=== PATIENT | male | born 1965 | race Caucasian/White ===

== ENCOUNTER 2023-07-26 23:23 | Inpatient (IN) | payer BC ==
[~2023-07-26] VITALS: Ht 188 cm; Wt 130.2 kg
[2023-07-27 00:35] LABS: CREATININE 1.4 mg/dL (0.5-1.3)
[2023-07-27 00:37] LABS: BASOPHILS # (AUTO) 0.02 K/uL (0.00-0.20); BASOPHILS % (AUTO) 0.2 % (0.0-5.0); EOSINOPHILS # (AUTO) 0.05 K/uL (0.00-0.70); EOSINOPHILS % (AUTO) 0.4 % (0.0-8.0); HEMATOCRIT 29.1 % (42-54); IMMATURE GRANULOCYTE ABSOLUTE 0.16 K/uL (0-1); LYMPHOCYTES # (AUTO) 0.7 K/uL (1.0-4.8); MEAN CORPUSCULAR HEMOGLOBIN 29.2 pg (27.0-33.0); MEAN CORPUSCULAR VOLUME 88.4 fL (79-99); MONOCYTES # (AUTO) 0.6 K/uL (0.1-1.0); MONOCYTES % (AUTO) 5.3 % (3.0-13.0); NEUTROPHILS # (AUTO) 9.9 K/uL (1.8-7.7); NEUTROPHILS % (AUTO) 86.7 % (40.0-77.0); PLATELET COUNT (AUTO) 38 K/uL (130-400); RED BLOOD CELL COUNT(AUTO) 3.29 MIL/uL (4.50-6.20); RED CELL DISTRIBUTION WIDTH 15.7 % (11.0-15.5); WHITE BLOOD COUNT (AUTO) 11.4 K/uL (4.8-10.8)
[2023-07-27 00:52] LABS: INR 1.11 (0.85-1.15)
[2023-07-27 00:54] LABS: PARTIAL THROMBOPLASTIN TIME 40.7 SEC (26.3-35.5)
[2023-07-27 00:57] LABS: WBC MORPHOLOGY CONSISTENT W/DIFF
[2023-07-27 00:58] LABS: PLATELET MORPHOLOGY COMMENT LARGE PLTS PRESENT
[2023-07-27] MEDS: ZOSYN 3.375GM +NS 50ML IV SCH ×2 (07:50→09:00)
[2023-07-27 08:46] LABS: BASOPHILS # (AUTO) 0.01 K/uL (0.00-0.20); BASOPHILS % (AUTO) 0.1 % (0.0-5.0); EOSINOPHILS # (AUTO) 0.05 K/uL (0.00-0.70); EOSINOPHILS % (AUTO) 0.7 % (0.0-8.0); HEMATOCRIT 26.7 % (42-54); IMMATURE GRANULOCYTE ABSOLUTE 0.11 K/uL (0-1); LYMPHOCYTES # (AUTO) 0.5 K/uL (1.0-4.8); LYMPHOCYTES % (AUTO) 7.1 % (21.0-51.0); MEAN CORPUSCULAR HEMOGLOBIN 29.8 pg (27.0-33.0); MEAN CORPUSCULAR VOLUME 90.5 fL (79-99); MONOCYTES # (AUTO) 0.5 K/uL (0.1-1.0); MONOCYTES % (AUTO) 6.4 % (3.0-13.0); NEUTROPHILS # (AUTO) 6.1 K/uL (1.8-7.7); NEUTROPHILS % (AUTO) 84.2 % (40.0-77.0); PLATELET COUNT (AUTO) 29 K/uL (130-400); RED BLOOD CELL COUNT(AUTO) 2.95 MIL/uL (4.50-6.20); RED CELL DISTRIBUTION WIDTH 15.6 % (11.0-15.5); WHITE BLOOD COUNT (AUTO) 7.2 K/uL (4.8-10.8)
[2023-07-27 08:56] LABS: ALBUMIN 1.9 g/dL (3.5-5.0); BILIRUBIN,TOTAL 1.2 mg/dL (0.2-1.0); CREATININE 1.3 mg/dL (0.5-1.3); TOTAL PROTEIN, SERUM 6.1 g/dL (6.0-8.3)
[2023-07-27] MEDS ORDERED: ACETAMINOPHEN 325 MG TAB PO PRN (09:00)
[2023-07-27 09:10] LABS: BASOPHILS # (AUTO) 0.01 K/uL (0.00-0.20); BASOPHILS % (AUTO) 0.1 % (0.0-5.0); EOSINOPHILS # (AUTO) 0.06 K/uL (0.00-0.70); EOSINOPHILS % (AUTO) 0.8 % (0.0-8.0); HEMATOCRIT 25.3 % (42-54); LYMPHOCYTES # (AUTO) 0.4 K/uL (1.0-4.8); LYMPHOCYTES % (AUTO) 4.9 % (21.0-51.0); MEAN CORPUSCULAR HGB CONC 33.2 g/dL (32.0-36.0); MEAN CORPUSCULAR VOLUME 90.4 fL (79-99); MONOCYTES # (AUTO) 0.5 K/uL (0.1-1.0); MONOCYTES % (AUTO) 6.1 % (3.0-13.0); NEUTROPHILS # (AUTO) 6.6 K/uL (1.8-7.7); NEUTROPHILS % (AUTO) 86.8 % (40.0-77.0); PLATELET COUNT (AUTO) 27 K/uL (130-400); RED CELL DISTRIBUTION WIDTH 15.6 % (11.0-15.5); WHITE BLOOD COUNT (AUTO) 7.6 K/uL (4.8-10.8)
[2023-07-27 09:20] LABS: POTASSIUM 4.1 mmol/L (3.5-5.1)
[2023-07-27] MEDS: IBUPROFEN 200 MG TAB PO SCH (09:30)
[2023-07-27 09:57] LABS: RETICULOCYTE % (AUTO) 1.2 % (0.42-2.23)
[2023-07-27] MEDS: 0.9%NACL 1000ML 1,000 ML IV SCH (09:57)
[2023-07-27] MEDS: FAMOTIDINE 20MG TAB PO SCH (09:57)
[2023-07-27] MEDS: CEFTRIAXONE 1G VIAL IVPB SCH (09:57)
[2023-07-27 10:23] LABS: HIV 1&2 ANTIBODY Non-Reactive (Negative); HIV-1 p24 Antigen Non-Reactive (Negative)
[2023-07-27 10:57] LABS: % IRON SATURATION 11.1 % (30-44)
[2023-07-27 12:00] VITALS: BP 110/75; PULSE 105; RESP 19
[2023-07-27] MEDS ORDERED: IOHEXOL-350 75 ML VIAL IV ONE (12:37)
[2023-07-27] MEDS ORDERED: SOLU-MEDROL 125MG VIAL IVP ONE (13:30)
[2023-07-27] MEDS ORDERED: COMPOUND IV MISC 1 EACH IVSOLN MISC PRN (14:30)
[2023-07-27] MEDS: AZITHROMYCIN 500MG+NS 250ML 250 ML IVPB SCH (14:33)
[2023-07-27 16:00] VITALS: BP 99/67; PULSE 119; RESP 19
[2023-07-27] MEDS: PHARMACY COMMUNICATION MISC SCH (16:00)
[2023-07-27] MEDS: [UNRECOGNIZED DRUG - OTHER] IVP ONE (18:11)
[2023-07-27] MEDS: METHYLPREDNISOLONE SUCC IVP ONE (18:11)
[2023-07-27] MEDS: IRON SUCROSE COMPLEX 300 MG+/NS 250ML IV SCH (18:13)
[2023-07-27 20:00] VITALS: BP 108/62; PULSE 76; RESP 18; O2SAT 96
[2023-07-27] MEDS: ACETAMINOPHEN 325 MG TAB PO PRN (20:09)
[2023-07-27 20:41] LABS: APPEARANCE,URINE CLOUDY (CLEAR); BILIRUBIN,URINE NEGATIVE (NEGATIVE); COLOR,URINE YELLOW (YELLOW); GLUCOSE, URINE (UA) NEGATIVE (NEGATIVE); KETONES,URINE 10 mg/dL (NEGATIVE); LEUKOCYTE ESTERASE ,URINE NEGATIVE Leu/uL (NEGATIVE); NITRATE,URINE NEGATIVE (NEGATIVE); OCCULT BLOOD,URINE SMALL (NEGATIVE); PROTEIN,URINE 70 mg/dL (NEGATIVE); UROBILINOGEN,URINE 0.2 mg/dL (0.2-1.0)
[2023-07-27 20:43] LABS: ADD UA MICROSCOPIC YES
[2023-07-27 20:46] LABS: BACTERIA,URINE RARE /HPF (None Seen); MUCUS,URINE RARE LPF (None Seen)
[2023-07-27 21:06] LABS: AMPHET/METH SCREEN,URINE NEGATIVE (NEGATIVE); BARBITURATE SCREEN, URINE NEGATIVE (NEGATIVE); BENZODIAZEPINES SCREEN,URINE NEGATIVE (NEGATIVE); CANNABINOID SCREEN,URINE POSITIVE (NEGATIVE); COCAINE SCREEN,URINE NEGATIVE (NEGATIVE); OPIATE SCREEN,URINE NEGATIVE (NEGATIVE); PHENCYCLIDINE SCREEN,URINE NEGATIVE (NEGATIVE)
[2023-07-28] VITALS (9 sets, daily range): BP systolic 113–126; BP diastolic 65–81; PULSE 76–99; RESP 18–22; O2SAT 96–98
[2023-07-28 04:36] LABS: BASOPHILS # (AUTO) 0.01 K/uL (0.00-0.20); BASOPHILS % (AUTO) 0.2 % (0.0-5.0); HEMATOCRIT 26.2 % (42-54); IMMATURE GRANULOCYTE ABSOLUTE 0.09 K/uL (0-1); LYMPHOCYTES # (AUTO) 0.2 K/uL (1.0-4.8); LYMPHOCYTES % (AUTO) 2.6 % (21.0-51.0); MEAN CORPUSCULAR HGB CONC 33.2 g/dL (32.0-36.0); MEAN CORPUSCULAR VOLUME 90.3 fL (79-99); MONOCYTES # (AUTO) 0.2 K/uL (0.1-1.0); MONOCYTES % (AUTO) 2.5 % (3.0-13.0); NEUTROPHILS # (AUTO) 5.7 K/uL (1.8-7.7); NEUTROPHILS % (AUTO) 93.2 % (40.0-77.0); PLATELET COUNT (AUTO) 28 K/uL (130-400); RED CELL DISTRIBUTION WIDTH 15.8 % (11.0-15.5); WHITE BLOOD COUNT (AUTO) 6.1 K/uL (4.8-10.8)
[2023-07-28 04:55] LABS: CREATININE 1.6 mg/dL (0.5-1.3); MAGNESIUM 2.2 mg/dL (1.80-2.40); POTASSIUM 4.5 mmol/L (3.5-5.1)
[2023-07-28] MEDS: 0.9% NACL 500ML IV.SOLN 500 ML IV STA (05:28)
[2023-07-28 07:01] LABS: ERYTHROCYTE SEDIMENTATION RATE 110 MM/HR (0-20)
[2023-07-28 10:28] LABS: ABG BASE EXCESS -2.3 mmol/L (-2.0-3.0); ABG HCO3 19.9 mmol/L (21.0-28.0); ABG OXYGEN SATURATION 97.8 % (95.0-99.0); ABG PCO2 28 mmHg (35-48); ABG PH 7.468 (7.35-7.450); PO2, ARTERIAL BG 96.7 mmHg (83.0-108.0); VENT MODE, BG RA (ROOM AIR)
[2023-07-28] MEDS ORDERED: DIATR MEGLU/DIATRIZOATE SODIUM 30 ML BOTTLE ONE (12:55)
[2023-07-28] MEDS ORDERED: COMPOUND IV MISC 1 EACH IVSOLN MISC PRN (13:00)
[2023-07-28] MEDS: FLUCONAZOLE 200 MG/NS 100 ML 100 ML IV SCH (13:39)
[2023-07-28] MEDS: DOXYCYCLINE HYCLATE 100 MG TABLET PO SCH (13:40)
[2023-07-28] MEDS: MEROPENEM 1 GM in 0.9%NACL 100ML 100 ML IVPB SCH (14:59)
[2023-07-29] VITALS (7 sets, daily range): BP systolic 119–132; BP diastolic 62–81; PULSE 73–81; RESP 17–20; O2SAT 96–97
[2023-07-29 04:42] LABS: ALBUMIN 1.8 g/dL (3.5-5.0); BILIRUBIN,TOTAL 0.8 mg/dL (0.2-1.0); CREATININE 2.4 mg/dL (0.5-1.3); TOTAL PROTEIN, SERUM 5.9 g/dL (6.0-8.3)
[2023-07-29 08:23] LABS: BASOPHILS # (AUTO) 0.01 K/uL (0.00-0.20); BASOPHILS % (AUTO) 0.1 % (0.0-5.0); EOSINOPHILS # (AUTO) 0.01 K/uL (0.00-0.70); EOSINOPHILS % (AUTO) 0.1 % (0.0-8.0); HEMATOCRIT 23.9 % (42-54); IMMATURE GRANULOCYTE ABSOLUTE 0.16 K/uL (0-1); LYMPHOCYTES # (AUTO) 0.4 K/uL (1.0-4.8); LYMPHOCYTES % (AUTO) 2.8 % (21.0-51.0); MEAN CORPUSCULAR HEMOGLOBIN 29.8 pg (27.0-33.0); MEAN CORPUSCULAR HGB CONC 32.6 g/dL (32.0-36.0); MEAN CORPUSCULAR VOLUME 91.2 fL (79-99); MONOCYTES # (AUTO) 0.6 K/uL (0.1-1.0); MONOCYTES % (AUTO) 4.7 % (3.0-13.0); NEUTROPHILS # (AUTO) 11.3 K/uL (1.8-7.7); PLATELET COUNT (AUTO) 38 K/uL (130-400); RED BLOOD CELL COUNT(AUTO) 2.62 MIL/uL (4.50-6.20); RED CELL DISTRIBUTION WIDTH 16.1 % (11.0-15.5); WHITE BLOOD COUNT (AUTO) 12.4 K/uL (4.8-10.8)
[2023-07-29 11:48] LABS: HEMOGLOBIN A1C 5.6 % (4.0-6.0)
[2023-07-29] MEDS: IBUPROFEN 400 MG TABLET PO SCH (20:47)
[2023-07-30] VITALS (22 sets, daily range): BP systolic 108–157; BP diastolic 50–88; PULSE 75–94; RESP 11–23; O2SAT 98
[2023-07-30 05:31] LABS: BASOPHILS # (AUTO) 0.01 K/uL (0.00-0.20); BASOPHILS % (AUTO) 0.1 % (0.0-5.0); HEMATOCRIT 23.2 % (42-54); IMMATURE GRANULOCYTE ABSOLUTE 0.24 K/uL (0-1); LYMPHOCYTES # (AUTO) 0.5 K/uL (1.0-4.8); LYMPHOCYTES % (AUTO) 5.3 % (21.0-51.0); MEAN CORPUSCULAR HEMOGLOBIN 29.9 pg (27.0-33.0); MEAN CORPUSCULAR HGB CONC 32.8 g/dL (32.0-36.0); MEAN CORPUSCULAR VOLUME 91.3 fL (79-99); MONOCYTES # (AUTO) 0.6 K/uL (0.1-1.0); MONOCYTES % (AUTO) 5.9 % (3.0-13.0); NEUTROPHILS # (AUTO) 8.3 K/uL (1.8-7.7); NEUTROPHILS % (AUTO) 86.2 % (40.0-77.0); PLATELET COUNT (AUTO) 38 K/uL (130-400); RED BLOOD CELL COUNT(AUTO) 2.54 MIL/uL (4.50-6.20); RED CELL DISTRIBUTION WIDTH 16.2 % (11.0-15.5); WHITE BLOOD COUNT (AUTO) 9.7 K/uL (4.8-10.8)
[2023-07-30 05:56] LABS: ALBUMIN 1.8 g/dL (3.5-5.0); BILIRUBIN,TOTAL 0.9 mg/dL (0.2-1.0); CREATININE 2.4 mg/dL (0.5-1.3); MAGNESIUM 2.3 mg/dL (1.80-2.40); POTASSIUM 3.6 mmol/L (3.5-5.1); TOTAL PROTEIN, SERUM 5.5 g/dL (6.0-8.3); URIC ACID 8.4 mg/dL (2.6-7.2)
[2023-07-30 14:13] LABS: ANTI-SCLERODERMA 70 <0.2 AI (0.0-0.9)
[2023-07-30] MEDS: SIMETHICONE 80 MG TAB.CHEW PO PRN (17:44)
[2023-07-30] MEDS: ONDANSETRON 4MG INJ IVP PRN (18:12)
[2023-07-30 19:10] LABS: HEMATOCRIT 24.6 % (42-54); MEAN CORPUSCULAR HEMOGLOBIN 29.5 pg (27.0-33.0); MEAN CORPUSCULAR HGB CONC 33.7 g/dL (32.0-36.0); MEAN CORPUSCULAR VOLUME 87.5 fL (79-99); RED BLOOD CELL COUNT(AUTO) 2.81 MIL/uL (4.50-6.20); RED CELL DISTRIBUTION WIDTH 15.9 % (11.0-15.5); WHITE BLOOD COUNT (AUTO) 7.8 K/uL (4.8-10.8)
[2023-07-30 19:22] LABS: CREATININE 2.1 mg/dL (0.5-1.3); POTASSIUM 3.4 mmol/L (3.5-5.1)
[2023-07-30 19:27] LABS: ALBUMIN 1.9 g/dL (3.5-5.0); BILIRUBIN,TOTAL 1.3 mg/dL (0.2-1.0); TOTAL PROTEIN, SERUM 5.4 g/dL (6.0-8.3)
[2023-07-30] MEDS: POTASSIUM CHLORIDE 20MEQ/100ML 100 ML IV ONE ×2 (19:39→20:00)
[2023-07-30 20:50] LABS: INR 1.13 (0.85-1.15); PROTHROMBIN TIME 13.2 SEC (9.6-11.6)
[2023-07-30] MEDS: PANTOPRAZOLE 40 MG/VIAL IVP SCH (22:00)
[2023-07-30] MEDS: LORAZEPAM 2 MG/ML 1 ML VIAL ONE (22:31)
[2023-07-30] MEDS: LORAZEPAM 2 MG/ML 1 ML VIAL IVP PRN (23:50)
[2023-07-31] VITALS (41 sets, daily range): BP systolic 116–150; BP diastolic 67–102; PULSE 83–93; RESP 16–23; O2SAT 97–99
[2023-07-31] MEDS ORDERED: DEXTROSE 50%-WATER 50 ML DISP.SYRIN IV PRN
[2023-07-31] MEDS ORDERED: GLUCAGON 1MG KIT 1 MG ML IM PRN
[2023-07-31] MEDS: LEVETIRACETAM 1,000 MG in 0.9%NACL 100ML IV ONE (00:08)
[2023-07-31 04:05] LABS: BASOPHILS # (AUTO) 0.01 K/uL (0.00-0.20); BASOPHILS % (AUTO) 0.1 % (0.0-5.0); HEMATOCRIT 23.4 % (42-54); IMMATURE GRANULOCYTE ABSOLUTE 0.18 K/uL (0-1); LYMPHOCYTES # (AUTO) 0.4 K/uL (1.0-4.8); LYMPHOCYTES % (AUTO) 4.1 % (21.0-51.0); MEAN CORPUSCULAR HEMOGLOBIN 29.6 pg (27.0-33.0); MEAN CORPUSCULAR HGB CONC 32.9 g/dL (32.0-36.0); MONOCYTES # (AUTO) 0.3 K/uL (0.1-1.0); MONOCYTES % (AUTO) 3.4 % (3.0-13.0); NEUTROPHILS # (AUTO) 7.7 K/uL (1.8-7.7); NEUTROPHILS % (AUTO) 90.3 % (40.0-77.0); PLATELET COUNT (AUTO) 31 K/uL (130-400); RED CELL DISTRIBUTION WIDTH 16.1 % (11.0-15.5); WHITE BLOOD COUNT (AUTO) 8.6 K/uL (4.8-10.8)
[2023-07-31 04:19] LABS: ALBUMIN 1.7 g/dL (3.5-5.0); BILIRUBIN,TOTAL 1.3 mg/dL (0.2-1.0); CREATININE 2.1 mg/dL (0.5-1.3); PHOSPHORUS 4.4 mg/dL (2.5-4.9); POTASSIUM 3.9 mmol/L (3.5-5.1); TOTAL PROTEIN, SERUM 5.3 g/dL (6.0-8.3)
[2023-07-31] MEDS: IRON SUCROSE COMPLEX 100 MG/5 ML VIAL IV ONE (08:20)
[2023-07-31] MEDS: FOLIC ACID 1 MG TABLET PO ONE (08:20)
[2023-07-31] MEDS: Vitamin B Complex/Vit C/Folic Acid PO ONE (08:24)
[2023-07-31] MEDS: LEVETIRACETAM 500 MG in 0.9%NACL 100ML 100 ML IV SCH (11:50)
[2023-07-31] MEDS ORDERED: DULO60CA64 PO (12:27)
[2023-07-31] MEDS ORDERED: METH-812 PO (12:27)
[2023-07-31] MEDS ORDERED: FLUT15.845 NS (12:27)
[2023-07-31 16:24] LABS: BILIRUBIN,URINE NEGATIVE (NEGATIVE); COLOR,URINE YELLOW (YELLOW); GLUCOSE, URINE (UA) NEGATIVE (NEGATIVE); KETONES,URINE NEGATIVE (NEGATIVE); LEUKOCYTE ESTERASE ,URINE NEGATIVE Leu/uL (NEGATIVE); NITRATE,URINE NEGATIVE (NEGATIVE); OCCULT BLOOD,URINE LARGE (NEGATIVE); PROTEIN,URINE 20 mg/dL (NEGATIVE)
[2023-07-31 16:28] LABS: APPEARANCE,URINE HAZY (CLEAR)
[2023-07-31 16:29] LABS: ADD UA MICROSCOPIC YES
[2023-07-31 16:33] LABS: BACTERIA,URINE RARE /HPF (None Seen); MUCUS,URINE RARE LPF (None Seen); RBC,URINE 51-100 /HPF (0-1); WBC,URINE 0-1 /HPF (0-1)
[2023-07-31 16:34] LABS: CREATININE,URINE RANDOM 60.55 mg/dL (30-135)
[2023-07-31] MEDS ORDERED: LEVETIRACETAM 500 MG/5 ML SD VIAL IV SCH (18:00)
[2023-07-31] MEDS: LEVETIRACETAM 1,000 MG in 0.9%NACL 100ML 100 ML IV ONE (18:46)
[2023-07-31] MEDS: LEVETIRACETAM 250 MG TABLET PO SCH (20:30)
[2023-07-31] MEDS ORDERED: LEVETIRACETAM 750 MG in 0.9%NACL 100ML 100 ML IV SCH (21:00)
[2023-08-01] VITALS (21 sets, daily range): BP systolic 117–145; BP diastolic 58–83; PULSE 84–99; RESP 15–24; O2SAT 95–98
[2023-08-01 03:43] LABS: BASOPHILS # (AUTO) 0.01 K/uL (0.00-0.20); BASOPHILS % (AUTO) 0.1 % (0.0-5.0); EOSINOPHILS # (AUTO) 0.08 K/uL (0.00-0.70); EOSINOPHILS % (AUTO) 0.8 % (0.0-8.0); HEMATOCRIT 23.6 % (42-54); LYMPHOCYTES # (AUTO) 0.3 K/uL (1.0-4.8); LYMPHOCYTES % (AUTO) 3.3 % (21.0-51.0); MEAN CORPUSCULAR HEMOGLOBIN 29.7 pg (27.0-33.0); MEAN CORPUSCULAR HGB CONC 32.2 g/dL (32.0-36.0); MEAN CORPUSCULAR VOLUME 92.2 fL (79-99); MONOCYTES # (AUTO) 0.3 K/uL (0.1-1.0); MONOCYTES % (AUTO) 3.1 % (3.0-13.0); NEUTROPHILS # (AUTO) 8.6 K/uL (1.8-7.7); NEUTROPHILS % (AUTO) 88.6 % (40.0-77.0); PLATELET COUNT (AUTO) 26 K/uL (130-400); RED BLOOD CELL COUNT(AUTO) 2.56 MIL/uL (4.50-6.20); RED CELL DISTRIBUTION WIDTH 15.9 % (11.0-15.5); WHITE BLOOD COUNT (AUTO) 9.7 K/uL (4.8-10.8)
[2023-08-01 03:53] LABS: INR 1.14 (0.85-1.15); PROTHROMBIN TIME 13.3 SEC (9.6-11.6)
[2023-08-01 03:54] LABS: PARTIAL THROMBOPLASTIN TIME 43.3 SEC (26.3-35.5)
[2023-08-01 03:58] LABS: ALBUMIN 1.6 g/dL (3.5-5.0); BILIRUBIN,TOTAL 1.6 mg/dL (0.2-1.0); CREATININE 1.8 mg/dL (0.5-1.3); MAGNESIUM 1.7 mg/dL (1.80-2.40); PHOSPHORUS 3.1 mg/dL (2.5-4.9); POTASSIUM 3.7 mmol/L (3.5-5.1); TOTAL PROTEIN, SERUM 5.1 g/dL (6.0-8.3)
[2023-08-01] MEDS: MAGNESIUM 2GM PREMIX 50ML 50 ML IV SCH (08:29)
[2023-08-01] MEDS: DEXAMETHASONE SOD PHOSPHATE 4 MG/ML 1ML VIAL IV SCH (13:46)
[2023-08-01] MEDS ORDERED: FENTANYL CITRATE PF 50 MCG/1 ML 2ML VIAL ONE (14:22)
[2023-08-01] MEDS ORDERED: MIDAZOLAM HCL 1 MG/ML 2ML VIAL ONE (14:22)
[2023-08-01] MEDS: INSULIN HUMULIN R 100 UNIT/ML 3ML SQ SCH (16:30)
[2023-08-01] MEDS: FAMOTIDINE 20MG TAB PO SCH (20:24)
[2023-08-02] VITALS (13 sets, daily range): BP systolic 101–151; BP diastolic 55–86; PULSE 78–105; RESP 15–21; O2SAT 96–97
[2023-08-02 05:38] LABS: MEAN CORPUSCULAR HEMOGLOBIN 29.3 pg (27.0-33.0); MEAN CORPUSCULAR HGB CONC 33.2 g/dL (32.0-36.0); MEAN CORPUSCULAR VOLUME 88.4 fL (79-99); PLATELET COUNT (AUTO) 55 K/uL (130-400); RED BLOOD CELL COUNT(AUTO) 2.49 MIL/uL (4.50-6.20); RED CELL DISTRIBUTION WIDTH 15.8 % (11.0-15.5); WHITE BLOOD COUNT (AUTO) 9.3 K/uL (4.8-10.8)
[2023-08-02 05:48] LABS: ALBUMIN 1.6 g/dL (3.5-5.0); BILIRUBIN,TOTAL 1.8 mg/dL (0.2-1.0); CREATININE 1.8 mg/dL (0.5-1.3); MAGNESIUM 2.3 mg/dL (1.80-2.40); PHOSPHORUS 4.3 mg/dL (2.5-4.9); TOTAL PROTEIN, SERUM 5.5 g/dL (6.0-8.3)
[2023-08-02 06:06] LABS: EOSINOPHILS % (MANUAL) 1 % (1-6); LYMPHOCYTES % (MANUAL) 2 % (22-44); MONOCYTES % (MANUAL) 3 % (2-9); SEGMENTED NEUTROPHILS % 94 % (40-70); TOTAL CELLS COUNTED 100
[2023-08-02 06:07] LABS: MAN.DIFF COMMENT-IMPRESSION MANUAL DIFFERENTIAL; PLATELET MORPHOLOGY COMMENT DECREASED
[2023-08-02 12:13] LABS: FREE KAPPA LIGHT CHAINS,S 48.5 mg/L (3.3-19.4)
[2023-08-02 13:15] LABS: CYTOPLASMIC (C-ANCA) AB, IGG <1:20 titer (Neg:<1:20)
[2023-08-02 15:15] LABS: ALBUMIN (IFE & ELECTROPHOR) 2.1 g/dL (2.9-4.4); ALBUMIN/GLOBULIN RATIO (IFE) 0.8 (0.7-1.7); ALPHA-1 (IFE & PEP) 0.4 g/dL (0.0-0.4); ALPHA-2 (IFE & PEP) 0.9 g/dL (0.4-1.0); BETA (IFE & ELP) 0.8 g/dL (0.7-1.3); GAMMA GLOBULINS (IFE & ELP) 0.9 g/dL (0.4-1.8); GLOBULIN TOTAL (IFE) 2.9 g/dL (2.2-3.9); IGA (IFE) 313 mg/dL (90-386); IGG (IMMUNOFIXATION) 934 mg/dL (603-1613); IGM (IMMUNOFIXATION) 26 mg/dL (20-172); M-SPIKE (IEP) Not Observed g/dL (Not Observed)
[2023-08-03] VITALS (7 sets, daily range): BP systolic 120–142; BP diastolic 71–86; PULSE 81–113; RESP 14–22; O2SAT 94–96
[2023-08-03 04:50] LABS: BASOPHILS # (AUTO) 0.01 K/uL (0.00-0.20); BASOPHILS % (AUTO) 0.1 % (0.0-5.0); HEMATOCRIT 22.4 % (42-54); IMMATURE GRANULOCYTE ABSOLUTE 0.65 K/uL (0-1); LYMPHOCYTES # (AUTO) 0.3 K/uL (1.0-4.8); LYMPHOCYTES % (AUTO) 2.5 % (21.0-51.0); MEAN CORPUSCULAR HEMOGLOBIN 29.2 pg (27.0-33.0); MEAN CORPUSCULAR VOLUME 88.5 fL (79-99); MONOCYTES # (AUTO) 0.5 K/uL (0.1-1.0); MONOCYTES % (AUTO) 4.1 % (3.0-13.0); NEUTROPHILS # (AUTO) 10.4 K/uL (1.8-7.7); NEUTROPHILS % (AUTO) 87.8 % (40.0-77.0); PLATELET COUNT (AUTO) 82 K/uL (130-400); RED BLOOD CELL COUNT(AUTO) 2.53 MIL/uL (4.50-6.20); RED CELL DISTRIBUTION WIDTH 15.9 % (11.0-15.5); WHITE BLOOD COUNT (AUTO) 11.8 K/uL (4.8-10.8)
[2023-08-03 05:07] LABS: ALBUMIN 1.6 g/dL (3.5-5.0); BILIRUBIN,TOTAL 1.1 mg/dL (0.2-1.0); CREATININE 1.8 mg/dL (0.5-1.3); MAGNESIUM 2.2 mg/dL (1.80-2.40); PHOSPHORUS 4.4 mg/dL (2.5-4.9); TOTAL PROTEIN, SERUM 5.5 g/dL (6.0-8.3)
[2023-08-03 09:38] LABS: CHOLESTEROL 137 mg/dL (<200); HDL CHOLESTEROL 24 mg/dL (29-71); LDL DIRECT 92 mg/dL (0-99); TRIGLYCERIDES 106 mg/dL (30-200)
[2023-08-03 14:29] LABS: APPEARANCE,URINE CLOUDY (CLEAR); BILIRUBIN,URINE NEGATIVE (NEGATIVE); COLOR,URINE YELLOW (YELLOW); GLUCOSE, URINE (UA) NEGATIVE (NEGATIVE); KETONES,URINE NEGATIVE (NEGATIVE); LEUKOCYTE ESTERASE ,URINE NEGATIVE Leu/uL (NEGATIVE); NITRATE,URINE NEGATIVE (NEGATIVE); OCCULT BLOOD,URINE MODERATE (NEGATIVE); PH,URINE 5.5 (5.0-8.0); PROTEIN,URINE 30 mg/dL (NEGATIVE)
[2023-08-03 14:35] LABS: ADD UA MICROSCOPIC YES
[2023-08-03 14:40] LABS: MUCUS,URINE RARE LPF (None Seen); OTHER CASTS, URINE 1 /LPF (None Seen); SQUAMOUS EPITHELIAL CELL,UR RARE /HPF (0-2); UNCLASSIFIED CRYSTAL 6 /HPF (None Seen)
[2023-08-03] MEDS: METOPROLOL TARTRATE 1 MG/ML 5ML VIAL IV PRN (15:31)
[2023-08-03] MEDS: METOPROLOL TARTRATE 25 MG TAB PO ONE (15:31)
[2023-08-03] MEDS: METOPROLOL TARTRATE 25 MG TAB ONE (15:33)
[2023-08-03] MEDS: METOPROLOL TARTRATE 1 MG/ML 5ML VIAL IV ONE ×3 (15:33→16:38)
[2023-08-03] MEDS: METOPROLOL TARTRATE 25 MG TAB PO SCH (20:26)
[2023-08-03] MEDS: LACTULOSE 20 GM/30 ML UDCUP PO ONE (20:27)
[2023-08-03] MEDS: ATORVASTATIN 40 MG TABLET PO SCH (20:27)
[2023-08-04] VITALS (32 sets, daily range): BP systolic 113–160; BP diastolic 67–95; PULSE 67–160; RESP 14–22; O2SAT 96
[2023-08-04 04:36] LABS: BASOPHILS # (AUTO) 0.02 K/uL (0.00-0.20); BASOPHILS % (AUTO) 0.2 % (0.0-5.0); HEMATOCRIT 23.8 % (42-54); IMMATURE GRANULOCYTE ABSOLUTE 0.64 K/uL (0-1); LYMPHOCYTES # (AUTO) 0.3 K/uL (1.0-4.8); LYMPHOCYTES % (AUTO) 2.8 % (21.0-51.0); MEAN CORPUSCULAR HEMOGLOBIN 29.1 pg (27.0-33.0); MEAN CORPUSCULAR HGB CONC 32.8 g/dL (32.0-36.0); MEAN CORPUSCULAR VOLUME 88.8 fL (79-99); MONOCYTES # (AUTO) 0.5 K/uL (0.1-1.0); MONOCYTES % (AUTO) 4.4 % (3.0-13.0); NEUTROPHILS # (AUTO) 9.8 K/uL (1.8-7.7); NEUTROPHILS % (AUTO) 86.9 % (40.0-77.0); PLATELET COUNT (AUTO) 71 K/uL (130-400); RED BLOOD CELL COUNT(AUTO) 2.68 MIL/uL (4.50-6.20); RED CELL DISTRIBUTION WIDTH 16.1 % (11.0-15.5); WHITE BLOOD COUNT (AUTO) 11.3 K/uL (4.8-10.8)
[2023-08-04 05:50] LABS: ALBUMIN 1.7 g/dL (3.5-5.0); BILIRUBIN,TOTAL 0.9 mg/dL (0.2-1.0); MAGNESIUM 2.1 mg/dL (1.80-2.40); POTASSIUM 4.4 mmol/L (3.5-5.1); TOTAL PROTEIN, SERUM 5.4 g/dL (6.0-8.3)
[2023-08-04] MEDS: 0.9% NACL 500ML IV.SOLN 500 ML IV ONE (10:41)
[2023-08-04] MEDS: DILTIAZEM 60MG TAB PO SCH (17:06)
[2023-08-04] MEDS: METOPROLOL TARTRATE 25 MG TAB PO SCH (20:38)
[2023-08-05] VITALS (11 sets, daily range): BP systolic 105–151; BP diastolic 55–85; PULSE 62–108; RESP 12–23; O2SAT 94–95
[2023-08-05 03:46] LABS: BASOPHILS # (AUTO) 0.03 K/uL (0.00-0.20); BASOPHILS % (AUTO) 0.2 % (0.0-5.0); HEMATOCRIT 22.2 % (42-54); IMMATURE GRANULOCYTE ABSOLUTE 0.79 K/uL (0-1); LYMPHOCYTES # (AUTO) 0.4 K/uL (1.0-4.8); LYMPHOCYTES % (AUTO) 2.8 % (21.0-51.0); MEAN CORPUSCULAR HEMOGLOBIN 29.3 pg (27.0-33.0); MEAN CORPUSCULAR HGB CONC 32.9 g/dL (32.0-36.0); MEAN CORPUSCULAR VOLUME 89.2 fL (79-99); MONOCYTES # (AUTO) 0.6 K/uL (0.1-1.0); MONOCYTES % (AUTO) 4.3 % (3.0-13.0); NEUTROPHILS # (AUTO) 11.4 K/uL (1.8-7.7); NEUTROPHILS % (AUTO) 86.7 % (40.0-77.0); PLATELET COUNT (AUTO) 65 K/uL (130-400); RED BLOOD CELL COUNT(AUTO) 2.49 MIL/uL (4.50-6.20); RED CELL DISTRIBUTION WIDTH 16.1 % (11.0-15.5); WHITE BLOOD COUNT (AUTO) 13.1 K/uL (4.8-10.8)
[2023-08-05 04:06] LABS: ALBUMIN 1.7 g/dL (3.5-5.0); BILIRUBIN,TOTAL 0.9 mg/dL (0.2-1.0); CREATININE 2.1 mg/dL (0.5-1.3); POTASSIUM 4.3 mmol/L (3.5-5.1)
[2023-08-05 11:09] LABS: INR 1.16 (0.85-1.15); PROTHROMBIN TIME 13.5 SEC (9.6-11.6)
[2023-08-05 11:11] LABS: PARTIAL THROMBOPLASTIN TIME 34.7 SEC (26.3-35.5)
[2023-08-05] MEDS: MORPHINE 4 MG SYG IVP ONE (13:12)
[2023-08-05] MEDS: MORPHINE 4 MG SYG ONE (13:28)
[2023-08-05] MEDS ORDERED: HYDROCODONE/ACETAMINOPHEN 5/325 MG TAB PO PRN (13:30)
[2023-08-05 17:14] LABS: ABG OXYGEN SATURATION 80.4 % (95.0-99.0); BASE EXCESS,VENOUS BLOOD GAS -4.1 (-2.0-3.0); DEVICE COMMENT VENOUS; HCO3,VENOUS BLOOD GAS 19.1 (21.0-28.0); PCO2,VENOUS BLOOD GAS 30 (32-45); PH,VENOUS BLOOD GAS 7.417 (7.350-7.450)
[2023-08-05 18:09] LABS: GAMMA URINE 25.1 % (.)
[2023-08-06] VITALS (9 sets, daily range): BP systolic 112–129; BP diastolic 68–84; PULSE 74–95; RESP 18–20; O2SAT 95
[2023-08-06 03:47] LABS: BASOPHILS # (AUTO) 0.03 K/uL (0.00-0.20); BASOPHILS % (AUTO) 0.2 % (0.0-5.0); EOSINOPHILS # (AUTO) 0.01 K/uL (0.00-0.70); EOSINOPHILS % (AUTO) 0.1 % (0.0-8.0); IMMATURE GRANULOCYTE ABSOLUTE 0.88 K/uL (0-1); LYMPHOCYTES # (AUTO) 0.4 K/uL (1.0-4.8); LYMPHOCYTES % (AUTO) 2.6 % (21.0-51.0); MEAN CORPUSCULAR HEMOGLOBIN 29.2 pg (27.0-33.0); MEAN CORPUSCULAR HGB CONC 30.8 g/dL (32.0-36.0); MEAN CORPUSCULAR VOLUME 94.7 fL (79-99); MONOCYTES # (AUTO) 0.5 K/uL (0.1-1.0); MONOCYTES % (AUTO) 3.1 % (3.0-13.0); NEUTROPHILS # (AUTO) 13.5 K/uL (1.8-7.7); NEUTROPHILS % (AUTO) 88.2 % (40.0-77.0); PLATELET COUNT (AUTO) 60 K/uL (130-400); RED BLOOD CELL COUNT(AUTO) 2.64 MIL/uL (4.50-6.20); RED CELL DISTRIBUTION WIDTH 16.4 % (11.0-15.5); WHITE BLOOD COUNT (AUTO) 15.3 K/uL (4.8-10.8)
[2023-08-06 04:05] LABS: ALBUMIN 1.7 g/dL (3.5-5.0); CREATININE 2.2 mg/dL (0.5-1.3); MAGNESIUM 2.1 mg/dL (1.80-2.40); PHOSPHORUS 5.3 mg/dL (2.5-4.9); POTASSIUM 4.9 mmol/L (3.5-5.1); TOTAL PROTEIN, SERUM 5.1 g/dL (6.0-8.3)
[2023-08-06] MEDS: LIDOCAINE 4% ADH..PATCH TP SCH (09:59)
[2023-08-06] MEDS: METOPROLOL SUCCINATE 50 MG TAB.SR.24H PO SCH (09:59)
[2023-08-06] MEDS: MORPHINE 2 MG SYG IV PRN (10:00)
[2023-08-06] MEDS: 0.9% NACL 500ML IV.SOLN 500 ML IV SCH (10:01)
[2023-08-06] MEDS ORDERED: HEPARIN 1,000 UNIT VIAL IVP SCH (17:30)
[2023-08-06] MEDS: M.V.I. IV [ADULT] 10 ML in CLINIMIX-E 5%AA /D15%W 2000ML 2,000 ML IV ONE (17:36)
[2023-08-06] MEDS: HEPARIN 25,000 UNITS/250ML D5W 250 ML IV SCH (17:38)
[2023-08-06] MEDS: HEPARIN 5,000 UNIT VIAL ONE (17:44)
[2023-08-06] MEDS: HEPARIN 5,000 UNIT VIAL IV ONE (17:44)
[2023-08-07] VITALS (7 sets, daily range): BP systolic 110–135; BP diastolic 59–79; PULSE 78–85; RESP 18–20; O2SAT 95
[2023-08-07 05:48] LABS: BASOPHILS # (AUTO) 0.03 K/uL (0.00-0.20); BASOPHILS % (AUTO) 0.2 % (0.0-5.0); HEMATOCRIT 22.3 % (42-54); IMMATURE GRANULOCYTE ABSOLUTE 0.78 K/uL (0-1); LYMPHOCYTES # (AUTO) 0.2 K/uL (1.0-4.8); LYMPHOCYTES % (AUTO) 1.3 % (21.0-51.0); MEAN CORPUSCULAR HEMOGLOBIN 29.9 pg (27.0-33.0); MEAN CORPUSCULAR HGB CONC 32.7 g/dL (32.0-36.0); MEAN CORPUSCULAR VOLUME 91.4 fL (79-99); MONOCYTES # (AUTO) 0.6 K/uL (0.1-1.0); MONOCYTES % (AUTO) 3.4 % (3.0-13.0); NEUTROPHILS # (AUTO) 16.5 K/uL (1.8-7.7); NEUTROPHILS % (AUTO) 90.8 % (40.0-77.0); PLATELET COUNT (AUTO) 52 K/uL (130-400); RED BLOOD CELL COUNT(AUTO) 2.44 MIL/uL (4.50-6.20); RED CELL DISTRIBUTION WIDTH 16.3 % (11.0-15.5); WHITE BLOOD COUNT (AUTO) 18.1 K/uL (4.8-10.8)
[2023-08-07 06:08] LABS: INR 1.18 (0.85-1.15); PROTHROMBIN TIME 13.8 SEC (9.6-11.6)
[2023-08-07 06:11] LABS: ALBUMIN 1.7 g/dL (3.5-5.0); BILIRUBIN,TOTAL 0.9 mg/dL (0.2-1.0); CREATININE 2.2 mg/dL (0.5-1.3); PHOSPHORUS 4.3 mg/dL (2.5-4.9); POTASSIUM 5.5 mmol/L (3.5-5.1); TOTAL PROTEIN, SERUM 4.9 g/dL (6.0-8.3)
[2023-08-07 06:25] LABS: PARTIAL THROMBOPLASTIN TIME > 139.0 SEC (26.3-35.5)
[2023-08-07] MEDS: FLUCONAZOLE 400 MG/NS 200 ML 200 ML IV SCH (08:54)
[2023-08-07] MEDS: 0.9% NACL 500ML IV.SOLN 500 ML IV SCH (10:04)
[2023-08-07] MEDS: FAT EMULSIONS 20% 250ML 250 ML IV SCH (11:30)
[2023-08-07] MEDS: MEROPENEM 1 GM in 0.9%NACL 100ML 100 ML IVPB SCH (16:24)
[2023-08-07] MEDS ORDERED: HEPARIN 5,000 UNIT VIAL IV PRN (19:00)
[2023-08-07] MEDS: DOXYCYCLINE 100MG+NS 250ML 250 ML IV SCH (21:41)
[2023-08-07 21:49] LABS: MAGNESIUM 2.3 mg/dL (1.80-2.40); POTASSIUM 5.3 mmol/L (3.5-5.1)
[2023-08-07] MEDS: LEVETIRACETAM 750 MG in 0.9%NACL 100ML 100 ML IV SCH (23:40)
[2023-08-08] VITALS (8 sets, daily range): BP systolic 120–149; BP diastolic 66–84; PULSE 67–94; RESP 18–20; O2SAT 95–96
[2023-08-08] MEDS: HEPARIN 25,000 UNITS/250ML D5W 250 ML IV SCH (01:00)
[2023-08-08] MEDS: M.V.I. IV [ADULT] 10 ML in CLINIMIX-E 5%AA /D15%W 2000ML 2,000 ML IV ONE (01:55)
[2023-08-08 07:15] LABS: BASOPHILS # (AUTO) 0.04 K/uL (0.00-0.20); BASOPHILS % (AUTO) 0.2 % (0.0-5.0); HEMATOCRIT 26.3 % (42-54); IMMATURE GRANULOCYTE ABSOLUTE 1.06 K/uL (0-1); LYMPHOCYTES # (AUTO) 0.3 K/uL (1.0-4.8); LYMPHOCYTES % (AUTO) 1.2 % (21.0-51.0); MEAN CORPUSCULAR HEMOGLOBIN 29.1 pg (27.0-33.0); MEAN CORPUSCULAR HGB CONC 31.6 g/dL (32.0-36.0); MEAN CORPUSCULAR VOLUME 92.3 fL (79-99); MONOCYTES # (AUTO) 0.6 K/uL (0.1-1.0); MONOCYTES % (AUTO) 2.8 % (3.0-13.0); NEUTROPHILS % (AUTO) 90.7 % (40.0-77.0); PLATELET COUNT (AUTO) 62 K/uL (130-400); RED BLOOD CELL COUNT(AUTO) 2.85 MIL/uL (4.50-6.20); WHITE BLOOD COUNT (AUTO) 20.9 K/uL (4.8-10.8)
[2023-08-08 07:38] LABS: ALBUMIN 1.9 g/dL (3.5-5.0); CREATININE 2.1 mg/dL (0.5-1.3); MAGNESIUM 2.2 mg/dL (1.80-2.40); PHOSPHORUS 4.1 mg/dL (2.5-4.9); POTASSIUM 4.9 mmol/L (3.5-5.1); TOTAL PROTEIN, SERUM 5.3 g/dL (6.0-8.3)
[2023-08-08] MEDS: FAMOTIDINE 20MG VIAL IV SCH (08:21)
[2023-08-08] MEDS: DILTIAZEM 60MG TAB PO SCH (08:22)
[2023-08-09] VITALS (33 sets, daily range): BP systolic 91–142; BP diastolic 48–80; PULSE 52–90; RESP 10–19; TEMP 96.5–98.3; O2SAT 96–98
[2023-08-09 04:24] LABS: BASOPHILS # (AUTO) 0.03 K/uL (0.00-0.20); BASOPHILS % (AUTO) 0.2 % (0.0-5.0); HEMATOCRIT 22.6 % (42-54); IMMATURE GRANULOCYTE ABSOLUTE 0.86 K/uL (0-1); LYMPHOCYTES # (AUTO) 0.2 K/uL (1.0-4.8); LYMPHOCYTES % (AUTO) 1.5 % (21.0-51.0); MEAN CORPUSCULAR HEMOGLOBIN 29.8 pg (27.0-33.0); MEAN CORPUSCULAR HGB CONC 31.9 g/dL (32.0-36.0); MEAN CORPUSCULAR VOLUME 93.4 fL (79-99); MONOCYTES # (AUTO) 0.5 K/uL (0.1-1.0); NEUTROPHILS # (AUTO) 14.1 K/uL (1.8-7.7); NEUTROPHILS % (AUTO) 89.8 % (40.0-77.0); PLATELET COUNT (AUTO) 48 K/uL (130-400); RED BLOOD CELL COUNT(AUTO) 2.42 MIL/uL (4.50-6.20); RED CELL DISTRIBUTION WIDTH 16.8 % (11.0-15.5); WHITE BLOOD COUNT (AUTO) 15.7 K/uL (4.8-10.8)
[2023-08-09 04:47] LABS: ALBUMIN 1.7 g/dL (3.5-5.0); BILIRUBIN,TOTAL 0.8 mg/dL (0.2-1.0); CREATININE 1.9 mg/dL (0.5-1.3); MAGNESIUM 2.1 mg/dL (1.80-2.40); POTASSIUM 5.3 mmol/L (3.5-5.1); TOTAL PROTEIN, SERUM 4.8 g/dL (6.0-8.3)
[2023-08-09] MEDS ORDERED: FENTANYL CITRATE PF 50 MCG/1 ML 2ML VIAL ONE ×5 (07:36→12:09)
[2023-08-09] MEDS ORDERED: ROCURONIUM BROMIDE 10MG/1ML 5ML VL ONE ×2 (07:36→09:37)
[2023-08-09] MEDS ORDERED: MIDAZOLAM HCL 1 MG/ML 2ML VIAL ONE ×2 (07:36→07:48)
[2023-08-09] MEDS ORDERED: PROPOFOL 10 MG/ML 20ML VIAL IV ONE ×2 (07:36→11:31)
[2023-08-09] MEDS ORDERED: PHENYLEPHRINE HCL 10 MG/ML 1ML VIAL IV ONE (07:47)
[2023-08-09] MEDS ORDERED: LIDOCAINE HCL 400MG/20ML VIAL ONE (07:47)
[2023-08-09] MEDS ORDERED: KETAMINE 50MG/ML SYRINGE 50 MG/ML DISP.SYRIN ONE (08:01)
[2023-08-09] MEDS ORDERED: VASOPRESSIN 20 UNITS/ML 1ML VIAL ONE (08:03)
[2023-08-09] MEDS ORDERED: ONDANSETRON 4MG INJ ONE (08:52)
[2023-08-09 09:40] LABS: ABG BASE EXCESS -6.1 mmol/L (-2.0-3.0); ABG HCO3 18.7 mmol/L (21.0-28.0); ABG OXYGEN SATURATION 98.9 % (95.0-99.0); ABG PCO2 34 mmHg (35-48); ABG PH 7.364 (7.35-7.450); CARBON MONOXIDE 0.3; HHb 1.1; PO2, ARTERIAL BG 244.7 mmHg (83.0-108.0); VENT MODE, BG OR VENT (ROOM AIR)
[2023-08-09] MEDS: DOXYCYCLINE 100MG+NS 250ML IV ONE (10:40)
[2023-08-09 11:16] LABS: ABG BASE EXCESS -6.7 mmol/L (-2.0-3.0); ABG HCO3 18.2 mmol/L (21.0-28.0); ABG OXYGEN SATURATION 98.3 % (95.0-99.0); ABG PCO2 34 mmHg (35-48); ABG PH 7.349 (7.35-7.450); CARBON MONOXIDE 0.3; HHb 1.7; PO2, ARTERIAL BG 159.8 mmHg (83.0-108.0); VENT MODE, BG OR VENT (ROOM AIR)
[2023-08-09] MEDS ORDERED: NEOSTIGMINE METHYLSULFATE 1MG/ML IV ONE (11:39)
[2023-08-09] MEDS ORDERED: GLYCOPYRROLATE 0.2 MG/ML 5 ML VIAL ONE (11:39)
[2023-08-09 13:46] LABS: MEAN CORPUSCULAR HGB CONC 33.2 g/dL (32.0-36.0); MEAN CORPUSCULAR VOLUME 90.5 fL (79-99); PLATELET COUNT (AUTO) 63 K/uL (130-400); RED BLOOD CELL COUNT(AUTO) 2.43 MIL/uL (4.50-6.20); RED CELL DISTRIBUTION WIDTH 15.8 % (11.0-15.5); WHITE BLOOD COUNT (AUTO) 27.6 K/uL (4.8-10.8)
[2023-08-09 13:52] LABS: CREATININE 1.5 mg/dL (0.5-1.3); POTASSIUM 4.2 mmol/L (3.5-5.1)
[2023-08-09] MEDS: EPOETIN ALFA-EPBX (NON-ESRD) 10,000 UNIT/ML VIAL SQ SCH (16:28)
[2023-08-09] MEDS: M.V.I. IV [ADULT] 10 ML in CLINIMIX-E 5%AA /D15%W 2000ML 2,000 ML IV ONE (16:28)
[2023-08-10] VITALS (49 sets, daily range): BP systolic 91–175; BP diastolic 51–96; PULSE 66–98; RESP 11–70; TEMP 98.3–98.8; O2SAT 95–98
[2023-08-10 03:56] LABS: HEMATOCRIT 22.6 % (42-54); MEAN CORPUSCULAR HEMOGLOBIN 30.4 pg (27.0-33.0); MEAN CORPUSCULAR HGB CONC 34.1 g/dL (32.0-36.0); MEAN CORPUSCULAR VOLUME 89.3 fL (79-99); RED BLOOD CELL COUNT(AUTO) 2.53 MIL/uL (4.50-6.20); RED CELL DISTRIBUTION WIDTH 16.6 % (11.0-15.5)
[2023-08-10 05:13] LABS: ALBUMIN 1.7 g/dL (3.5-5.0); BILIRUBIN,TOTAL 1.3 mg/dL (0.2-1.0); CREATININE 2.1 mg/dL (0.5-1.3); MAGNESIUM 2.3 mg/dL (1.80-2.40); PHOSPHORUS 4.4 mg/dL (2.5-4.9); POTASSIUM 5.4 mmol/L (3.5-5.1); TOTAL PROTEIN, SERUM 4.3 g/dL (6.0-8.3)
[2023-08-10] MEDS: CYANOCOBALAMIN (VITAMIN B-12) 1,000 MCG TABLET PO SCH (08:35)
[2023-08-10] MEDS: FOLIC ACID 5 MG/ML VIAL IV SCH (08:47)
[2023-08-10] MEDS ORDERED: FUROSEMIDE 20MG VIAL IV ONE (09:30)
[2023-08-10 12:18] LABS: POTASSIUM 4.8 mmol/L (3.5-5.1)
[2023-08-10] MEDS: IRON SUCROSE COMPLEX 100 MG/5 ML VIAL IV ONE (15:01)
[2023-08-10] MEDS: INSULIN HUMULIN R 100 UNIT/ML 3ML SQ SCH (15:21)
[2023-08-10] MEDS: FUROSEMIDE 40MG VIAL IV STA (17:08)
[2023-08-10] MEDS: M.V.I. IV [ADULT] 10 ML in CLINIMIX-E 5%AA /D15%W 2000ML 2,000 ML IV ONE (18:36)
[2023-08-10] MEDS: PROPOFOL 1000 MG/100 ML 100 ML IV ONE (19:00)
[2023-08-10] MEDS: HYDROMORPHONE 0.5 MG SYG (0.5MG/0.5ML) IVP PRN (19:06)
[2023-08-10 19:51] LABS: CREATININE 2.1 mg/dL (0.5-1.3); POTASSIUM 4.7 mmol/L (3.5-5.1)
[2023-08-10 23:24] LABS: CREATININE 2.1 mg/dL (0.5-1.3); POTASSIUM 4.9 mmol/L (3.5-5.1)
[2023-08-11] VITALS (48 sets, daily range): BP systolic 114–165; BP diastolic 53–92; PULSE 58–94; RESP 9–111; TEMP 97.5–98.6; O2SAT 92–96
[2023-08-11 07:01] LABS: CREATININE 1.9 mg/dL (0.5-1.3)
[2023-08-11 07:58] LABS: BASOPHILS # (AUTO) 0.03 K/uL (0.00-0.20); BASOPHILS % (AUTO) 0.2 % (0.0-5.0); HEMATOCRIT 22.8 % (42-54); IMMATURE GRANULOCYTE ABSOLUTE 0.62 K/uL (0-1); LYMPHOCYTES # (AUTO) 0.2 K/uL (1.0-4.8); LYMPHOCYTES % (AUTO) 1.1 % (21.0-51.0); MEAN CORPUSCULAR HEMOGLOBIN 30.6 pg (27.0-33.0); MEAN CORPUSCULAR HGB CONC 33.3 g/dL (32.0-36.0); MEAN CORPUSCULAR VOLUME 91.9 fL (79-99); MONOCYTES # (AUTO) 0.6 K/uL (0.1-1.0); MONOCYTES % (AUTO) 3.4 % (3.0-13.0); NEUTROPHILS # (AUTO) 17.1 K/uL (1.8-7.7); PLATELET COUNT (AUTO) 46 K/uL (130-400); RED BLOOD CELL COUNT(AUTO) 2.48 MIL/uL (4.50-6.20); RED CELL DISTRIBUTION WIDTH 16.4 % (11.0-15.5); WHITE BLOOD COUNT (AUTO) 18.6 K/uL (4.8-10.8)
[2023-08-11 08:12] LABS: CHOLESTEROL 99 mg/dL (<200); HDL CHOLESTEROL 27 mg/dL (29-71); LDL DIRECT 61 mg/dL (0-99); TRIGLYCERIDES 56 mg/dL (30-200)
[2023-08-11] MEDS: FUROSEMIDE 40MG VIAL IV ONE (09:01)
[2023-08-11] MEDS: POLYETHYLENE GLYCOL 3350 17 GM POWD.PACK PO SCH (09:06)
[2023-08-11] MEDS: [UNRECOGNIZED DRUG - OTHER] IV SCH (13:55)
[2023-08-11] MEDS: DEXAMETHASONE IV SCH (13:55)
[2023-08-11] MEDS: HYDROMORPHONE 0.5 MG SYG (0.5MG/0.5ML) IVP PRN (17:18)
[2023-08-11] MEDS: PANTOPRAZOLE 40 MG/VIAL IVP SCH (20:37)
[2023-08-11] MEDS: INSULIN GLARGINE 100 UNITS/ML 10 ML VIAL SQ SCH (21:00)
[2023-08-12] VITALS (21 sets, daily range): BP systolic 114–136; BP diastolic 55–75; PULSE 60–77; RESP 9–16; TEMP 97.8; O2SAT 93–96
[2023-08-12 00:22] LABS: POTASSIUM 4.9 mmol/L (3.5-5.1)
[2023-08-12 04:32] LABS: BASOPHILS # (AUTO) 0.02 K/uL (0.00-0.20); BASOPHILS % (AUTO) 0.1 % (0.0-5.0); HEMATOCRIT 22.9 % (42-54); IMMATURE GRANULOCYTE ABSOLUTE 0.62 K/uL (0-1); LYMPHOCYTES # (AUTO) 0.3 K/uL (1.0-4.8); LYMPHOCYTES % (AUTO) 1.4 % (21.0-51.0); MEAN CORPUSCULAR HEMOGLOBIN 29.8 pg (27.0-33.0); MEAN CORPUSCULAR HGB CONC 32.8 g/dL (32.0-36.0); MEAN CORPUSCULAR VOLUME 90.9 fL (79-99); MONOCYTES # (AUTO) 0.4 K/uL (0.1-1.0); MONOCYTES % (AUTO) 2.3 % (3.0-13.0); NEUTROPHILS # (AUTO) 16.7 K/uL (1.8-7.7); NEUTROPHILS % (AUTO) 92.8 % (40.0-77.0); PLATELET COUNT (AUTO) 49 K/uL (130-400); RED BLOOD CELL COUNT(AUTO) 2.52 MIL/uL (4.50-6.20); RED CELL DISTRIBUTION WIDTH 16.6 % (11.0-15.5)
[2023-08-12 04:41] LABS: INR 1.15 (0.85-1.15); PARTIAL THROMBOPLASTIN TIME 30.2 SEC (26.3-35.5); PROTHROMBIN TIME 12.1 SEC (9.6-11.6)
[2023-08-12 06:47] LABS: CREATININE 1.9 mg/dL (0.5-1.3); MAGNESIUM 1.8 mg/dL (1.80-2.40)
[2023-08-12] MEDS ORDERED: MAGNESIUM 2GM PREMIX 50ML 50 ML IV PRN (09:00)
[2023-08-12] MEDS ORDERED: VANCOMYCIN 1G/250ML KIT 250 ML IV ONE ×2 (12:40→14:48)
[2023-08-12] MEDS ORDERED: LIDOCAINE HCL 1% MDV 50ML VIAL ONE (12:41)
[2023-08-12] MEDS ORDERED: BUPIVACAINE/PF 0.25% 30ML VIAL IJ ONE (12:41)
[2023-08-12] MEDS ORDERED: IOHEXOL-350 50ML VIAL IV ONE (12:41)
[2023-08-12] MEDS ORDERED: MIDAZOLAM HCL 1 MG/ML 2ML VIAL ONE ×3 (14:55→15:13)
[2023-08-12] MEDS ORDERED: MEPERIDINE-PF 25 MG/ML SYG ONE ×3 (14:55→15:13)
[2023-08-12 15:37] LABS: HEMATOCRIT 23.3 % (42-54); MEAN CORPUSCULAR HEMOGLOBIN 30.2 pg (27.0-33.0); MEAN CORPUSCULAR HGB CONC 31.3 g/dL (32.0-36.0); MEAN CORPUSCULAR VOLUME 96.3 fL (79-99); RED BLOOD CELL COUNT(AUTO) 2.42 MIL/uL (4.50-6.20); RED CELL DISTRIBUTION WIDTH 17.1 % (11.0-15.5); WHITE BLOOD COUNT (AUTO) 18.3 K/uL (4.8-10.8)
[2023-08-12] MEDS ORDERED: ACETAMINOPHEN 500 MG TABLET PO PRN (16:30)
[2023-08-13] VITALS (17 sets, daily range): BP systolic 121–153; BP diastolic 63–79; PULSE 55–72; RESP 9–19; O2SAT 96
[2023-08-13 04:02] LABS: BASOPHILS # (AUTO) 0.02 K/uL (0.00-0.20); BASOPHILS % (AUTO) 0.1 % (0.0-5.0); HEMATOCRIT 22.8 % (42-54); IMMATURE GRANULOCYTE ABSOLUTE 0.42 K/uL (0-1); LYMPHOCYTES # (AUTO) 0.2 K/uL (1.0-4.8); LYMPHOCYTES % (AUTO) 1.1 % (21.0-51.0); MEAN CORPUSCULAR HEMOGLOBIN 30.2 pg (27.0-33.0); MEAN CORPUSCULAR VOLUME 94.2 fL (79-99); MONOCYTES # (AUTO) 0.4 K/uL (0.1-1.0); MONOCYTES % (AUTO) 2.2 % (3.0-13.0); NEUTROPHILS # (AUTO) 15.7 K/uL (1.8-7.7); NEUTROPHILS % (AUTO) 94.1 % (40.0-77.0); PLATELET COUNT (AUTO) 54 K/uL (130-400); RED BLOOD CELL COUNT(AUTO) 2.42 MIL/uL (4.50-6.20); RED CELL DISTRIBUTION WIDTH 17.1 % (11.0-15.5); WHITE BLOOD COUNT (AUTO) 16.7 K/uL (4.8-10.8)
[2023-08-13 04:13] LABS: MAGNESIUM 2.5 mg/dL (1.80-2.40); PHOSPHORUS 5.5 mg/dL (2.5-4.9)
[2023-08-13] MEDS ORDERED: COMPOUND IV REFRIGERATED 1 EACH IVSOLN MISC PRN (08:00)
[2023-08-13] MEDS: EPOETIN ALFA-EPBX (NON-ESRD) 10,000 UNIT/ML VIAL SQ SCH (14:03)
[2023-08-13] MEDS ORDERED: LIDOCAINE HCL 400MG/20ML VIAL ONE (15:40)
[2023-08-13] MEDS ORDERED: MEPERIDINE-PF 25 MG/ML SYG ONE ×3 (15:40→16:41)
[2023-08-13] MEDS ORDERED: MIDAZOLAM HCL 1 MG/ML 2ML VIAL ONE ×3 (15:40→16:41)
[2023-08-13] MEDS ORDERED: HEPARIN 1,000 UNIT VIAL ONE (15:45)
[2023-08-14] VITALS (7 sets, daily range): BP systolic 126–147; BP diastolic 72–78; PULSE 66–73; RESP 16–18; O2SAT 94–96
[2023-08-14] MEDS: DOXYCYCLINE 100MG+NS 250ML 250 ML IV SCH (00:02)
[2023-08-14 04:27] LABS: BASOPHILS # (AUTO) 0.01 K/uL (0.00-0.20); BASOPHILS % (AUTO) 0.1 % (0.0-5.0); HEMATOCRIT 23.4 % (42-54); IMMATURE GRANULOCYTE ABSOLUTE 0.34 K/uL (0-1); LYMPHOCYTES # (AUTO) 0.2 K/uL (1.0-4.8); LYMPHOCYTES % (AUTO) 1.1 % (21.0-51.0); MEAN CORPUSCULAR HEMOGLOBIN 30.3 pg (27.0-33.0); MEAN CORPUSCULAR HGB CONC 32.9 g/dL (32.0-36.0); MEAN CORPUSCULAR VOLUME 92.1 fL (79-99); MONOCYTES # (AUTO) 0.4 K/uL (0.1-1.0); MONOCYTES % (AUTO) 2.4 % (3.0-13.0); NEUTROPHILS # (AUTO) 16.5 K/uL (1.8-7.7); NEUTROPHILS % (AUTO) 94.5 % (40.0-77.0); PLATELET COUNT (AUTO) 51 K/uL (130-400); RED BLOOD CELL COUNT(AUTO) 2.54 MIL/uL (4.50-6.20); RED CELL DISTRIBUTION WIDTH 16.7 % (11.0-15.5); WHITE BLOOD COUNT (AUTO) 17.5 K/uL (4.8-10.8)
[2023-08-14 04:42] LABS: ALBUMIN 1.8 g/dL (3.5-5.0); CREATININE 1.8 mg/dL (0.5-1.3); MAGNESIUM 2.2 mg/dL (1.80-2.40); PHOSPHORUS 4.7 mg/dL (2.5-4.9); POTASSIUM 4.9 mmol/L (3.5-5.1); TOTAL PROTEIN, SERUM 4.5 g/dL (6.0-8.3)
[2023-08-14] MEDS ORDERED: DEXAMETHASONE SOD PHOSPHATE 4 MG/ML 1ML VIAL IV SCH (08:30)
[2023-08-14] MEDS: DEXAMETHASONE IV SCH (10:04)
[2023-08-14] MEDS: [UNRECOGNIZED DRUG - OTHER] IV SCH (10:04)
[2023-08-14] MEDS: LEVETIRACETAM 250 MG TABLET PO SCH (21:19)
[2023-08-14] MEDS: BALSAM PERU/CASTOR OIL 60 GM TUBE TP SCH (21:21)
[2023-08-15] VITALS (8 sets, daily range): BP systolic 126–159; BP diastolic 67–89; PULSE 61–83; RESP 18–19; O2SAT 94–97
[2023-08-15 03:51] LABS: BASOPHILS # (AUTO) 0.02 K/uL (0.00-0.20); BASOPHILS % (AUTO) 0.1 % (0.0-5.0); HEMATOCRIT 23.4 % (42-54); IMMATURE GRANULOCYTE ABSOLUTE 0.43 K/uL (0-1); LYMPHOCYTES # (AUTO) 0.2 K/uL (1.0-4.8); LYMPHOCYTES % (AUTO) 0.9 % (21.0-51.0); MEAN CORPUSCULAR HGB CONC 32.9 g/dL (32.0-36.0); MEAN CORPUSCULAR VOLUME 94.4 fL (79-99); MONOCYTES # (AUTO) 0.6 K/uL (0.1-1.0); MONOCYTES % (AUTO) 3.1 % (3.0-13.0); NEUTROPHILS # (AUTO) 17.9 K/uL (1.8-7.7); NEUTROPHILS % (AUTO) 93.6 % (40.0-77.0); PLATELET COUNT (AUTO) 45 K/uL (130-400); RED BLOOD CELL COUNT(AUTO) 2.48 MIL/uL (4.50-6.20); RED CELL DISTRIBUTION WIDTH 17.2 % (11.0-15.5); WHITE BLOOD COUNT (AUTO) 19.1 K/uL (4.8-10.8)
[2023-08-15 04:06] LABS: ALBUMIN 1.7 g/dL (3.5-5.0); BILIRUBIN,TOTAL 1.7 mg/dL (0.2-1.0); CREATININE 1.7 mg/dL (0.5-1.3); PHOSPHORUS 4.6 mg/dL (2.5-4.9); POTASSIUM 5.1 mmol/L (3.5-5.1); TOTAL PROTEIN, SERUM 4.3 g/dL (6.0-8.3)
[2023-08-15] MEDS: APIXABAN 5 MG TABLET PO SCH (09:26)
[2023-08-15] MEDS ORDERED: IRON SUCROSE COMPLEX 100 MG/5 ML VIAL IV SCH (13:30)
[2023-08-15] MEDS: ACETAMINOPHEN WITH CODEINE 1 TAB TAB PO PRN (20:25)
[2023-08-16] VITALS: BP 131/69; PULSE 71; RESP 18
[2023-08-16 04:02] LABS: HEMATOCRIT 24.9 % (42-54); MEAN CORPUSCULAR HEMOGLOBIN 30.8 pg (27.0-33.0); MEAN CORPUSCULAR HGB CONC 32.1 g/dL (32.0-36.0); MEAN CORPUSCULAR VOLUME 95.8 fL (79-99); NUCLEATED RED BLOOD CELLS 0.1 % (0.0-0.19); PLATELET COUNT (AUTO) 44 K/uL (130-400); RED CELL DISTRIBUTION WIDTH 17.8 % (11.0-15.5); WHITE BLOOD COUNT (AUTO) 19.7 K/uL (4.8-10.8)
[2023-08-16 04:24] VITALS: BP 149/79; PULSE 72; RESP 18
[2023-08-16 04:28] LABS: ALBUMIN 1.7 g/dL (3.5-5.0); BILIRUBIN,TOTAL 1.6 mg/dL (0.2-1.0); CREATININE 1.6 mg/dL (0.5-1.3); PHOSPHORUS 4.2 mg/dL (2.5-4.9); POTASSIUM 5.1 mmol/L (3.5-5.1); TOTAL PROTEIN, SERUM 4.4 g/dL (6.0-8.3)
[2023-08-16 04:41] LABS: LYMPHOCYTES % (MANUAL) 2 % (22-44); MAN.DIFF COMMENT-IMPRESSION MANUAL DIFFERENTIAL; MONOCYTES % (MANUAL) 2 % (2-9); SEGMENTED NEUTROPHILS % 96 % (40-70); TOTAL CELLS COUNTED 100
[2023-08-16 04:42] LABS: PLATELET MORPHOLOGY COMMENT MARKED DECREASE; WBC MORPHOLOGY NORMAL
[2023-08-16 07:11] VITALS: BP 152/75; PULSE 61; RESP 18
[2023-08-16 08:40] VITALS: O2SAT 96
[2023-08-16] MEDS: DEXAMETHASONE 10MG/ML 1ML VIAL 10 MG in 0.9%NACL 50ML 50 ML IV SCH (08:43)
[2023-08-16 11:07] VITALS: BP 138/68; PULSE 59; RESP 18
[2023-08-21] MEDS ORDERED: PHARMACY COMMUNICATION MISC SCH (13:00)
[2023-08-21] MEDS ORDERED: METRONIDAZOLE 500MG/100ML BAG 100 ML IVPB SCH (14:00)
== END 2023-08-16 14:42 | DRG 853 ==
LOC: EDH 23:23 → EDHIP 07-27 08:57 → 4BH 07-27 10:37 → 2BH 07-30 20:18 → 2AH 08-06 01:17 → 2BH 08-09 10:54 → 2DH 08-13 06:05 → 2AH 08-13 18:27
PROVIDERS: ADMIT Internal Medicine; ATTEND Internal Medicine
PROC: 0D9N30Z Drainage of Sigmoid Colon with Drainage Device, Percutaneous Approach (ICD-10-PCS; principal; 2023-07-30)
PROC: 30233N1 Transfusion of Nonautologous Red Blood Cells into Peripheral Vein, Percutaneous Approach (ICD-10-PCS; 2023-08-01)
PROC: 0DBN0ZZ Excision of Sigmoid Colon, Open Approach (ICD-10-PCS; 2023-08-09)
PROC: 4A00X4Z Measurement of Central Nervous Electrical Activity, External Approach (ICD-10-PCS; 2023-08-09)
PROC: 0D1B0Z4 Bypass Ileum to Cutaneous, Open Approach (ICD-10-PCS; 2023-08-09 08:58)
DX: A40.0 Sepsis due to streptococcus, group A (principal); J15.4 Pneumonia due to other streptococci; J86.9 Pyothorax without fistula; R65.21 Severe sepsis with septic shock; K57.21 Diverticulitis of large intestine with perforation and abscess with bleeding; K65.1 Peritoneal abscess; J98.11 Atelectasis; D61.818 Other pancytopenia; N17.9 Acute kidney failure, unspecified; E87.1 Hypo-osmolality and hyponatremia; J90 Pleural effusion, not elsewhere classified; I48.92 Unspecified atrial flutter; D68.61 Antiphospholipid syndrome; I82.621 Acute embolism and thrombosis of deep veins of right upper extremity; I44.2 Atrioventricular block, complete; I47.19 Other supraventricular tachycardia; B34.9 Viral infection, unspecified; E87.8 Other disorders of electrolyte and fluid balance, not elsewhere classified; E88.09 Other disorders of plasma-protein metabolism, not elsewhere classified; M32.9 Systemic lupus erythematosus, unspecified; G40.909 Epilepsy, unspecified, not intractable, without status epilepticus; N45.2 Orchitis; N18.9 Chronic kidney disease, unspecified; E11.22 Type 2 diabetes mellitus with diabetic chronic kidney disease; I12.9 Hypertensive chronic kidney disease with stage 1 through stage 4 chronic kidney disease, or unspecified chronic kidney disease; K66.0 Peritoneal adhesions (postprocedural) (postinfection); D50.9 Iron deficiency anemia, unspecified; E66.01 Morbid (severe) obesity due to excess calories; E87.5 Hyperkalemia; E87.6 Hypokalemia; D69.59 Other secondary thrombocytopenia; K40.90 Unilateral inguinal hernia, without obstruction or gangrene, not specified as recurrent; I48.91 Unspecified atrial fibrillation; I25.10 Atherosclerotic heart disease of native coronary artery without angina pectoris; J02.0 Streptococcal pharyngitis; N18.32 Chronic kidney disease, stage 3b; Z79.01 Long term (current) use of anticoagulants; Z79.899 Other long term (current) drug therapy; Z80.42 Family history of malignant neoplasm of prostate; Z86.73 Personal history of transient ischemic attack (TIA), and cerebral infarction without residual deficits; Z95.0 Presence of cardiac pacemaker
CPT/HCPCS: 10030; 33208; 33210; 36415; 36600; 70450; 70490; 70551; 71045; 71250; 74018; 74176; 74178; 76376; 76770; 76870; 77012; 80048; 80053; 80061; 80177; 80305; 81001; 82270; 82435; 82550; 82570; 82607; 82728; 82803; 82947; 82948; 83036; 83521; 83605; 83615; 83735; 83880; 84100; 84132; 84145; 84146; 84156; 84166; 84295; 84484; 84550; 85018; 85025; 85027; 85049; 85610; 85651; 85730; 85732; 86038; 86060; 86140; 86147; 86160; 86200; 86215; 86235; 86255; 86325; 86334; 86431; 86701; 86757; 86850; 86900; 86901; 86923; 86927; 87040; 87070; 87071; 87076; 87086; 87088; 87186; 87205; 87390; 87496; 87880; 88184; 88185; 88189; 88307; 93005; 93306; 93308; 93356; 93653; 93880; 93970; 95819; 99152; 99153; 99156; 99157; 99291; A4344; C1732; C1769; C1785; C1894; C9113; G0378; J0456; J0696; J1100; J1170; J1450; J1644; J1756; J1815; J1940; J1953; J2060; J2175; J2185; J2250; J2270; J2371; J2405; J2543; J2704; J2710; J2930; J3010; J3370; J3475; J3480; J3490; J7030; J7050; P9016; P9017; P9034; Q9963; Q9967; A4452; A4510; A4649; A4930; C1729; C1898; G0500; J0665; Q5106

== ENCOUNTER → 2024-01-31 | Outpatient (CLI) | payer MEDICAID ==
[~2024-01-31] MED LIST: ATOR40TA69 PO; BALS60OI TP; DILT60TA3 PO; FURO10VI5 IV; LEVE500V28 IV; LIDO1ADH71 TP; MAGN400T7 PO; PANT40I IVP
--- NOTE | 2024-01-31 10:50 | HMCIMG ---
COLON-GASTROGRAFIN REASON: ILEOSTOMY, DIVERTICULITIS COMPARISON: None TECHNIQUE: Water-soluble enema was performed with fluoroscopic guidance. Multiple spot views were obtained. Fluoroscopy time was 1.2 minutes. Overhead images were performed as well. FINDINGS: There is filling from rectum to cecum with some reflux into the terminal ileum. There is mild diverticulosis of the sigmoid colon without evidence of diverticulitis, there are scattered diverticula in the descending colon as well. There is no evidence of leak or obstruction. IMPRESSION: 1. Mild sigmoid diverticulosis without evidence of diverticulitis. 2. Otherwise unremarkable exam, no evidence of leak or obstruction.
== END | disposition home or self-care (01) ==
LOC: RAH 08:39
PROVIDERS: ATTEND Surgery
DX: K57.30 Diverticulosis of large intestine without perforation or abscess without bleeding (principal); K57.20 Diverticulitis of large intestine with perforation and abscess without bleeding; Z93.2 Ileostomy status
CPT/HCPCS: 74270; Q9958